=== PATIENT | female | born 1965 ===

== ENCOUNTER → 2017-02-17 | Outpatient (CLI) | payer MEDICARE | END | disposition home or self-care (01) | LOC: LAB 11:18 | PROVIDERS: ATTEND Obstetrics & Gynecology | DX: N93.9 Abnormal uterine and vaginal bleeding, unspecified (principal); R53.83 Other fatigue | CPT/HCPCS: 36415; 83001; 83002; 84443 ==

== ENCOUNTER → 2017-02-17 | Outpatient (CLI) | payer MEDICARE | END | disposition home or self-care (01) | LOC: LAB 10:00 | PROVIDERS: ATTEND Obstetrics & Gynecology | DX: N84.1 Polyp of cervix uteri (principal); N93.9 Abnormal uterine and vaginal bleeding, unspecified; R53.83 Other fatigue ==